=== PATIENT | male | born 1955 | race Caucasian/White ===

== ENCOUNTER 2018-01-16 10:52 | Emergency (ER) | payer BC, OTHER ==
[2018-01-16] MEDS ORDERED: FOLIC ACID 5 MG/ML VIAL ONE (11:34)
[2018-01-16] MEDS ORDERED: NA CHLORIDE 0.9% 1,000 ML ONE (11:34)
--- NOTE | 2018-01-16 11:47 | RAD REPORT ---
EXAM DESCRIPTION: CT - Head Brain Wo Cont - 01/16/2018 11:35 am CLINICAL HISTORY: DIZZINESS COMPARISON: None. TECHNIQUE: Computed axial tomography of the head was obtained. IV contrast was not requested. All CT scans are performed using dose optimization technique as appropriate and may include automated exposure control or mA/KV adjustment according to patient size. FINDINGS: An intracranial bleed is not seen . The ventricles are normal in caliber. No extra-axial fluid collection is noted. Fluid within the sinuses/ mastoids is not seen. IMPRESSION: No acute intracranial abnormality is seen. If patient's symptoms persist MRI of the bra in would be recommended.
[2018-01-16] MEDS ORDERED: ASPIRIN 81 MG CHEWABLE TABLET ONE (11:59)
[2018-01-16] MEDS ORDERED: MECLIZINE HCL 12.5 MG TAB ONE (11:59)
--- NOTE | 2018-01-16 12:06 | RAD REPORT ---
EXAM DESCRIPTION: Ritesht Single View01/16/2018 11:59 am CLINICAL HISTORY: COUGH COMPARISON: CHEST SINGLE VIEW dated 12/02/2009 FINDINGS: The lungs appear clear of acute infiltrate. The heart is normal size IMPRESSION: No acute abnormalities displayed
[2018-01-16 12:16] LABS: Urine Blood NEGATIVE (NEG); Urine Glucose NEGATIVE (NEG); Urine Protein NEGATIVE (NEG); Urine pH 5.5 (5.0-7.0)
--- NOTE | 2018-01-16 12:29 | RAD REPORT ---
EXAM DESCRIPTION: US - CP - 01/16/2018 12:08 pm CLINICAL HISTORY: DIZZINESS CVA/TIA COMPARISON: Head Brain Wo Cont dated 01/16/2018; CHEST SINGLE VIEW dated 12/02/2009 TECHNIQUE: Real-time sonographic evaluation of both carotid systems was performed. Doppler interroga tion was performed with waveform tracing bilaterally. FINDINGS: Normal high resistance waveforms are noted in both external carotid arteries. The common c arotid arteries and internal carotid arteries show normal low resistance waveforms. No significant plaque formation is seen. Peak systolic and end diastolic velocity values and the ICA/ CCA ratios are in the non-hemodynamically significant range. Antegrade flow seen in both vertebral arteries. IMPRESSION: No significant atherosclerotic changes noted. No evidence of a hemodynamically significant stenosis.
--- NOTE | 2018-01-16 12:49 | RAD REPORT ---
EXAM DESCRIPTION: MRI - Brain Wo Cont - 01/16/2018 12:38 pm CLINICAL HISTORY: Vertigo, syncope TIA/CVA COMPARISON: Head Brain Wo Cont dated 01/16/2018 TECHNIQUE: Multi-sequence, multiplanar MR imaging of the brain was performed without contrast. FINDINGS: No intracranial hemorrhage, hydrocephalus or extra-axial fluid collections.Minimal punctat e foci of T2/FLAIR hyperintensity in the periventricular and deep white matter is present compatible with chronic microvascular ischemic changes. No edema or shift of midline structures. No findings to suspect brain mass. DWI is negative for acute CVA. Midline structures are normally formed. Mastoid air cells and paranasal sinuses are essentially clear. IMPRESSION: No acute or concerning intracranial abnormalities.
[2018-01-16 13:10] LABS: Absolute Lymphocytes (CBC) 1.9 K/uL (0.7-4.9); Absolute Monocytes 0.5 K/uL (0.1-1.3); Absolute Neutrophil 2.8 K/uL (1.8-8.0); Basophils % 2.2 % (0-1.3); Eosinophils % 3.8 % (0-4.4); Hematocrit 44.7 % (39.6-49.0); Lymphocytes % 35.2 % (15.3-44.8); MCH 31.6 pg (27.0-35.0); MCV 90.7 fL (80-100); MPV 9.8 fL (7.6-11.3); Monocytes % 8.6 % (3.3-12.3); RBC Red Blood Cell Count 4.93 M/uL (4.33-5.43)
[2018-01-16 13:16] LABS: Protime INR 1.05
[2018-01-16 13:32] LABS: ALT/SGPT 37 U/L (12-78); AST/SGOT 25 U/L (15-37); Albumin 4.4 g/dL (3.4-5.0); Alkaline Phosphatase 44 U/L (45-117); BUN Blood Urea Nitrogen 19 mg/dL (7-18); Bicarbonate 30 mmol/L (21-32); Bilirubin Direct 0.2 mg/dL (0-0.2); Bilirubin Total 0.8 mg/dL (0.2-1.0); CKMB Creatine Kinase MB 2.4 ng/mL (0.3-3.6); Creatine Phosphokinase 341 U/L (39-308); Glucose Level 81 mg/dL (74-106); Magnesium 2.3 mg/dL (1.8-2.4); NT PRO-BNP 135 pg/mL (<125); Potassium 3.7 mmol/L (3.5-5.1); Sodium Level 142 mmol/L (136-145); Troponin (Emerg Dept Use Only) < 0.02 ng/mL (0.0-0.045)
--- NOTE | 2018-01-16 14:26 | ER ---
Nurse's Notes [facility] Name: Itz Sellers Age: 62 yrs Sex: Male : 1955 Arrival Date: 01/16/2018 Time: 10:58 Bed 20 Private MD: Erik Evangelista H Diagnosis: Dizziness and giddiness;Ventricular premature depolarization Presentation: 01/16 10:58 Presenting complaint: Patient states: Yesterday morning he woke up after not sleeping aj1 well and he was not feeling very good, so he called into work. States when he got up he felt a little unbalanced, with some vertigo. Reports the feeling lasted all day yesterday. This morning he was still having vertigo, he took a nap, when he woke up he was feeling better, but is concerned as to what was causing the vertigo, so he came to the emergency room for evaluation. Transition of care: patient was not received from another setting of care. Onset of symptoms was January 15, 2018. Risk Assessment: Do you want to hurt yourself or someone else? Patient reports no desire to harm self or others. Initial Sepsis Screen: Does the patient meet any 2 criteria? No. Patient's initial sepsis screen is negative. Does the patient have a suspected source of infection? No. Patient's initial sepsis screen is negative. Care prior to arrival: None. 10:58 Method Of Arrival: Ambulatory [facility] 10:58 Acuity: CRISTAL 3 aj1 Triage Assessment: 11:04 General: Appears in no apparent distress. comfortable, Behavior is calm, cooperative, aj1 appropriate for age. Pain: Complains of pain in base of the skull Pain currently is 2 out of 10 on a pain scale. Neuro: Level of Consciousness is awake, alert, obeys commands, Oriented to person, place, time, situation, Moves all extremities. Full function Gait is steady, Speech is normal, Facial symmetry appears normal, Reports vertigo. Cardiovascular: Patient's skin is warm and dry. Respiratory: Airway is patent Respiratory effort is even, unlabored, Respiratory pattern is regular, symmetrical. Historical: - Allergies: 11:04 No Known Allergies; aj1 - Home Meds: 11:04 pravastatin oral oral [Active]; Lisinopril Oral [Active]; tamsulosin oral oral [Active];aj1 - PMHx: 11:04 Hyperlipidemia; Hypertension; BPH; aj1 - Immunization history:: Flu vaccine is not up to date. - Social history:: Smoking status: Patient/guardian denies using tobacco. - Ebola Screening: : Patient denies travel to an Ebola-affected area in the 21 days before illness onset. - Family history:: not pertinent. Screenin:16 Abuse screen: Denies threats or abuse. Nutritional screening: No deficits noted. em Tuberculosis screening: No symptoms or risk factors identified. Fall Risk None identified. Assessment: 11:30 General: Appears in no apparent distress. comfortable, Behavior is calm, cooperative. em Pain: Denies pain. Neuro: Level of Consciousness is awake, alert, obeys commands, Oriented to person, place, time, situation, Print Developer Automatic are equal bilaterally Moves all extremities. Gait is steady, Speech is normal, Facial symmetry appears normal, Pupils are PERRLA, Intact Reports ataxia since yesterday, symptoms have resolved. Cardiovascular: Denies chest pain, palpitations, shortness of breath, Capillary refill < 3 seconds Patient's skin is warm and dry. Respiratory: Airway is patent Respiratory effort is even, unlabored, Respiratory pattern is regular, symmetrical. GI: Abdomen is flat, Patient currently denies nausea, vomiting. : No signs and/or symptoms were reported regarding the genitourinary system. EENT: No signs and/or symptoms were reported regarding the EENT system. Derm: Skin is intact, Skin is pink, warm \T\ dry. Musculoskeletal: Range of motion: intact in all extremities. 11:35 General: The previous assessment is accurate, call light remains within reach.. ss 11:45 Reassessment: pt currently in CT. em 13:00 Reassessment: Patient appears in no apparent distress at this time. Patient and/or em family updated on plan of care and expected duration. Pain level reassessed. Patient is alert, oriented x 3, equal unlabored respirations, skin warm/dry/pink. Patient denies pain at this time. Patient states symptoms have improved. 14:13 Reassessment: Patient appears in no apparent distress at this time. Patient and/or em family updated on plan of care and expected duration. Pain level reassessed. Patient is alert, oriented x 3, equal unlabored respirations, skin warm/dry/pink. Patient denies pain at this time. Patient states symptoms have improved. Vital Signs: 11:04 BP 148 / 93; Pulse 62; Resp 18; Temp 98.7(TE); Pulse Ox 97% on R/A; Weight 90.72 kg aj1 (R); Height 5 ft. 7 in. (170.18 cm) (R); Pain 2/10; 12:46 BP 158 / 81; Pulse 52; Resp 17; Pulse Ox 96% on R/A; mh5 13:15 BP 167 / 91; Pulse 53; Resp 18; Pulse Ox 98% on R/A; Pain 0/10; em 14:30 BP 164 / 89; Pulse 54; Resp 16; Pulse Ox 99% on R/A; Pain 0/10; em 11:04 Body Mass Index 31.32 (90.72 kg, 170.18 cm) aj1 ED Course: 10:58 Patient arrived in ED. mr 11:01 Erik Evangelista DO is Private Physician. mr 11:02 Triage completed. aj1 11:04 Arm band placed on Patient placed in an exam room. aj1 11:12 Modesto Franklin MD is Attending Physician. [facility] 11:16 Amrit Ireland LVN is Primary Nurse. em 11:16 Patient has correct armband on for positive identification. Bed in low position. Call em light in reach. 11:16 No provider procedures requiring assistance completed. em 11:35 CT Head Brain wo Cont In Process Unspecified. EDMS 11:59 X-ray completed. Patient tolerated procedure well. Patient moved to MRI via wheelchair. mh1 12:00 XRAY Chest (1 view) In Process Unspecified. EDMS 12:08 US Carotid Artery Bilateral In Process Unspecified. EDMS 12:29 Brain Wo Cont In Process Unspecified. EDMS 12:40 MRI completed. Patient tolerated well. Patient moved back from MRI. em2 12:54 EKG done, by lock technician. reviewed by Modesto Franklin MD. at1 14:25 Erik Evangelista DO is Referral Physician. marixa 14:25 Ho Bell MD is Referral Physician. marixa 14:25 Akira Ho MD is Referral Physician. marixa 14:49 IV discontinued, intact, bleeding controlled, No redness/swelling at site. Pressure em dressing applied. Administered Medications: 13:08 Drug: NS 0.9% 1000 ml Route: IV; Rate: 1 bolus; Site: right antecubital; em 14:47 Follow up: IV Status: Completed infusion; IV Intake: 800ml em 13:08 Drug: Aspirin 162 mg Route: PO; em 14:12 Follow up: Response: No adverse reaction em 13:08 Drug: Meclizine 25 mg Route: PO; em 14:12 Follow up: Response: No adverse reaction em 13:09 Drug: foLIC Acid 1 mg Route: IVPB; Site: left antecubital; sg 14:12 Follow up: Response: No adverse reaction; IV Status: Completed infusion em Intake: 14:47 IV: 800ml; Total: 800ml. em Outcome: 14:25 Discharge ordered by . [facility] 14:49 Discharged to home ambulatory. em 14:49 Condition: good 14:49 Discharge instructions given to patient, Instructed on discharge instructions, follow up and referral plans. medication usage, Demonstrated understanding of instructions, follow-up care, medications, Prescriptions given X 1. 14:51 Patient left the ED. em Signatures: Dispatcher [employer] Amy Jiang RN RN aj1 Chas Whitney RN RN sg Anderson, Corey, MD MD cha Rivera, Maria mr John Gisela mh1 Amrit Ireland, HEALTH PLAN SPECIALIST HEALTH PLAN SPECIALIST Richelle Gutierrez RN RN ss Montes, Enrique em2 Tiarra Prince, shearing machine feeder EKG [facility]1 Cece Cason 5
--- NOTE | 2018-01-16 14:26 | EDPHYS ---
Physician Documentation [facility] Name: Itz Sellers Age: 62 yrs Sex: Male : 1955 Arrival Date: 01/16/2018 Time: 10:58 Bed 20 Private MD: Erik Evangelista H ED Physician Modesto Franklin HPI: 01/16 11:28 This 62 yrs old Male presents to ER via Ambulatory with complaints of Feels marixa Unbalanced. 11:28 The patient presents with dizziness, generalized weakness, feeling off balance, sense marixa of spinning. Onset: The symptoms/episode began/occurred 1 day(s) ago. Context: occurred at home. Modifying factors: The symptoms are alleviated by nothing, the symptoms are aggravated by nothing. Associated signs and symptoms: The patient has no apparent associated signs or symptoms. Severity of symptoms: At their worst the symptoms were mild. Patient's baseline: Neuro: alert and fully oriented. The patient has not experienced similar symptoms in the past. Historical: - Allergies: 11:04 No Known Allergies; aj1 - Home Meds: 11:04 pravastatin oral oral [Active]; Lisinopril Oral [Active]; tamsulosin oral oral [Active];aj1 - PMHx: 11:04 Hyperlipidemia; Hypertension; BPH; aj1 - Immunization history:: Flu vaccine is not up to date. - Social history:: Smoking status: Patient/guardian denies using tobacco. - Ebola Screening: : Patient denies travel to an Ebola-affected area in the 21 days before illness onset. - Family history:: not pertinent. ROS: 11:28 Constitutional: Negative for fever, chills, and weight loss, Eyes: Negative for injury, marixa pain, redness, and discharge, ENT: Negative for injury, pain, and discharge, Neck: Negative for injury, pain, and swelling, Cardiovascular: Negative for chest pain, palpitations, and edema, Respiratory: Negative for shortness of breath, cough, wheezing, and pleuritic chest pain, Abdomen/GI: Negative for abdominal pain, nausea, vomiting, diarrhea, and constipation, Back: Negative for injury and pain, : Negative for injury, bleeding, discharge, and swelling, MS/Extremity: Negative for injury and deformity, Skin: Negative for injury, rash, and discoloration, Psych: Negative for depression, anxiety, suicide ideation, homicidal ideation, and hallucinations, Allergy/Immunology: Negative for hives, rash, and allergies, Endocrine: Negative for neck swelling, polydipsia, polyuria, polyphagia, and marked weight changes, Hematologic/Lymphatic: Negative for swollen nodes, abnormal bleeding, and unusual bruising. 11:28 Neuro: Positive for dizziness, gait disturbance, weakness. Exam: 11:28 Constitutional: This is a well developed, well nourished patient who is awake, alert, marixa and in no acute distress. Head/Face: Normocephalic, atraumatic. Eyes: Pupils equal round and reactive to light, extra-ocular motions intact. Lids and lashes normal. Conjunctiva and sclera are non-icteric and not injected. Cornea within normal limits. Periorbital areas with no swelling, redness, or edema. ENT: Nares patent. No nasal discharge, no septal abnormalities noted. Tympanic membranes are normal and external auditory canals are clear. Oropharynx with no redness, swelling, or masses, exudates, or evidence of obstruction, uvula midline. Mucous membranes moist. Neck: Trachea midline, no thyromegaly or masses palpated, and no cervical lymphadenopathy. Supple, full range of motion without nuchal rigidity, or vertebral point tenderness. No Meningismus. Chest/axilla: Normal chest wall appearance and motion. Nontender with no deformity. No lesions are appreciated. Cardiovascular: Regular rate and rhythm with a normal S1 and S2. No gallops, murmurs, or rubs. Normal PMI, no JVD. No pulse deficits. Respiratory: Lungs have equal breath sounds bilaterally, clear to auscultation and percussion. No rales, rhonchi or wheezes noted. No increased work of breathing, no retractions or nasal flaring. Abdomen/GI: Soft, non-tender, with normal bowel sounds. No distension or tympany. No guarding or rebound. No evidence of tenderness throughout. Back: No spinal tenderness. No costovertebral tenderness. Full range of motion. Male : Normal genitalia with no discharge or lesions. Skin: Warm, dry with normal turgor. Normal color with no rashes, no lesions, and no evidence of cellulitis. MS/ Extremity: Pulses equal, no cyanosis. Neurovascular intact. Full, normal range of motion. Neuro: Awake and alert, GCS 15, oriented to person, place, time, and situation. Cranial nerves II-XII grossly intact. Motor strength 5/5 in all extremities. Sensory grossly intact. Cerebellar exam normal. Normal gait. Psych: Awake, alert, with orientation to person, place and time. Behavior, mood, and affect are within normal limits. Vital Signs: 11:04 BP 148 / 93; Pulse 62; Resp 18; Temp 98.7(TE); Pulse Ox 97% on R/A; Weight 90.72 kg aj1 (R); Height 5 ft. 7 in. (170.18 cm) (R); Pain 2/10; 12:46 BP 158 / 81; Pulse 52; Resp 17; Pulse Ox 96% on R/A; mh5 13:15 BP 167 / 91; Pulse 53; Resp 18; Pulse Ox 98% on R/A; Pain 0/10; em 14:30 BP 164 / 89; Pulse 54; Resp 16; Pulse Ox 99% on R/A; Pain 0/10; em 11:04 Body Mass Index 31.32 (90.72 kg, 170.18 cm) [facility] MDM: 11:12 Patient medically screened. [facility] 11:29 Data reviewed: vital signs, nurses notes, lab test result(s), EKG, radiologic studies, [facility] scan, doppler, MRI, plain films. 01/16 11:17 Order name: Basic Metabolic Panel; Complete Time: 14: [facility] 01/16 11:17 Order name: CBC with Diff; Complete Time: 14: [facility] 01/16 11:17 Order name: Ckmb; Complete Time: 14: [facility] 01/16 11:17 Order name: CPK; Complete Time: 14: [facility] 01/16 11:17 Order name: LFT's; Complete Time: 14: [facility] 01/16 11:17 Order name: Magnesium; Complete Time: 14: [facility] 01/16 11:17 Order name: NT PRO-BNP; Complete Time: 14: [facility] 01/16 11:17 Order name: PT-INR; Complete Time: 14: [facility] 01/16 11:17 Order name: Ptt, Activated; Complete Time: 14: [facility] 01/16 11:17 Order name: Troponin (emerg Dept Use Only); Complete Time: 14: [facility] 01/16 11:17 Order name: XRAY Chest (1 view); Complete Time: 12:10 [facility] 01/16 11:17 Order name: CT Head Brain wo Cont; Complete Time: 11:56 [facility] 01/16 11:17 Order name: Urine Culture [facility] 01/16 12:06 Order name: Urine Dipstick--Ancillary (enter results) 01/16 11:17 Order name: EKG; Complete Time: 11:18 [facility] 01/16 11:17 Order name: Cardiac monitoring; Complete Time: 13:09 [facility] 01/16 11:17 Order name: EKG - Nurse/Tech; Complete Time: 13:09 [facility] 01/16 11:17 Order name: IV Saline Lock; Complete Time: 13:09 [facility] 01/16 11:17 Order name: Labs collected and sent; Complete Time: 13:09 [facility] 01/16 11:17 Order name: O2 Per Protocol; Complete Time: 13:09 [facility] 01/16 11:17 Order name: O2 Sat Monitoring; Complete Time: 13:09 [facility] 01/16 11:17 Order name: Urine Dipstick-Ancillary (obtain specimen); Complete Time: 13:08 [facility] 01/16 11:17 Order name: US Carotid Artery Bilateral; Complete Time: 12:40 [facility] 01/16 12:28 Order name: Brain Wo Cont; Complete Time: 13:00 EDMS Administered Medications: 13:08 Drug: NS 0.9% 1000 ml Route: IV; Rate: 1 bolus; Site: right antecubital; em 14:47 Follow up: IV Status: Completed infusion; IV Intake: 800ml em 13:08 Drug: Aspirin 162 mg Route: PO; em 14:12 Follow up: Response: No adverse reaction em 13:08 Drug: Meclizine 25 mg Route: PO; em 14:12 Follow up: Response: No adverse reaction em 13:09 Drug: foLIC Acid 1 mg Route: IVPB; Site: left antecubital; sg 14:12 Follow up: Response: No adverse reaction; IV Status: Completed infusion em Disposition: 01/16/18 14:25 Discharged to Home. Impression: Dizziness and giddiness, Ventricular premature depolarization. - Condition is Stable. - Discharge Instructions: Dizziness, Premature Ventricular Contraction, Vertigo, Vertigo, [id number], Aspirin and Your Heart, Dizziness, [id number]. - Prescriptions for Meclizine 25 mg Oral Tablet - take 1 tablet by ORAL route every 8 hours As needed; 30 tablet. - Medication Reconciliation Form, Thank You Letter, Antibiotic Education, Prescription Opioid Use form. - Follow up: GladysRandi Evangelista; When: 2 - 3 days; Reason: Recheck today's complaints, Continuance of care, Re-evaluation by your physician. Follow up: Ho Bell; When: 2 - 3 days; Reason: Recheck today's complaints, Re-evaluation by your physician. Follow up: Akira Ho; When: 2 - 3 days; Reason: Recheck today's complaints, Re-evaluation by your physician. - Problem is new. - Symptoms have improved. Signatures: Dispatcher [employer] [facility] Amy Kelly RN RN aj1 Chas Whitney RN RN sg Anderson, Corey, MD MD cha Munoz, Edgar, BLADDER CLEANER BLADDER CLEANER em Corrections: (The following items were deleted from the chart) 12:28 11:25 MR STROKE PROTOCOL+MRI.RAD.BRZ ordered. [facility] 14:51 14:25 01/16/2018 14:25 Discharged to Home. Impression: Dizziness and giddiness; em Ventricular premature depolarization. Condition is Stable. Discharge Instructions: Dizziness, Vertigo, Vertigo, [id number], Aspirin and Your Heart, Dizziness, [id number], Premature Ventricular Contraction. Prescriptions for Meclizine 25 mg Oral Tablet - take 1 tablet by ORAL route every 8 hours As needed; 30 tablet. and Forms are Medication Reconciliation Form, Thank You Letter, Antibiotic Education, Prescription Opioid Use. Follow up: Erik Evangelista; When: 2 - 3 days; Reason: Recheck today's complaints, Continuance of care, Re-evaluation by your physician. Follow up: Ho Bell; When: 2 - 3 days; Reason: Recheck today's complaints, Re-evaluation by your physician. Follow up: Akira Ho; When: 2 - 3 days; Reason: Recheck today's complaints, Re-evaluation by your physician. Problem is new. Symptoms have improved. marixa
--- NOTE | 2018-01-17 06:07 | EKG ---
Test Date: 2018-01-16 Test Time: 12:49:15 Metal Roaster: LINN MEASUREMENT RESULTS: Intervals: Rate: 65 UT: 172 QRSD: 160 QT: 456 QTc: 474 [place]: P: 65 UT: 172 QRS: 91 T: 60 INTERPRETIVE STATEMENTS: Sinus bradycardia with occasional premature ventricular complexes Right bundle branch block Abnormal ECG No previous ECG available for comparison Electronically Signed On 01-17-18 06:06:16 CDT by Ho Bell
== END 2018-01-16 14:51 | disposition home or self-care (01) ==
LOC: ER 10:52
DX: I49.3 Ventricular premature depolarization (principal); I10 Essential (primary) hypertension; E78.5 Hyperlipidemia, unspecified; N40.0 Benign prostatic hyperplasia without lower urinary tract symptoms
CPT/HCPCS: 36415; 70450; 70551; 71045; 80048; 80076; 81003; 82550; 82553; 83735; 83880; 84484; 85025; 85610; 85730; 87086; 87088; 93005; 93880; 96361; 96365; 99284; J7030